=== PATIENT | male | born 1975 | race Caucasian/White ===

== ENCOUNTER → 2019-05-19 | Outpatient (CLI) | payer BC, OTHER | LOC: CAT 07:43 | DX: D48.7 Neoplasm of uncertain behavior of other specified sites (principal) ==

== ENCOUNTER → 2019-12-15 | Outpatient (CLI) | payer BC, OTHER | LOC: MRI 13:09 | DX: D48.7 Neoplasm of uncertain behavior of other specified sites (principal) ==

== ENCOUNTER → 2021-01-02 | Outpatient (CLI) | payer BC, OTHER | LOC: CAT 15:50 | PROVIDERS: ATTEND Ophthalmology | DX: D31.62 Benign neoplasm of unspecified site of left orbit (principal) ==